=== PATIENT | male | born 1965 | race Caucasian/White ===

== ENCOUNTER 2018-01-04 05:50 | Day surgery (SDC) | END 2018-01-04 10:50 | disposition home or self-care (01) ==

== ENCOUNTER → 2018-04-29 | Outpatient (CLI) | END | disposition home or self-care (01) ==

== ENCOUNTER → 2018-06-29 | Outpatient (CLI) | END | disposition home or self-care (01) ==

== ENCOUNTER 2018-06-30 07:27 | Inpatient (IN) | END 2018-07-01 13:20 | disposition home health service (06) | DRG 470 ==

== ENCOUNTER → 2018-07-13 | Outpatient (CLI) | END | disposition home or self-care (01) ==

== ENCOUNTER → 2018-09-27 | Outpatient (CLI) | END | disposition home or self-care (01) ==

== ENCOUNTER → 2018-10-11 | Outpatient (CLI) | END | disposition home or self-care (01) ==

== ENCOUNTER 2018-12-01 05:50 | Inpatient (IN) | payer OTHER ==
[2018-12-01] VITALS (25 sets, daily range): BP systolic 95–131; BP diastolic 58–85; PULSE 64–99; RESP 10–27; Ht 180.3 cm; Wt 94.8 kg
[~2018-12-01] VITALS: Ht 180.3 cm; Wt 94.8 kg
[~2018-12-01 05:50] MED LIST: ALLO100T PO; AMLO2.5T78 PO; ATOR40TA68 PO
[2018-12-01] MEDS ORDERED: LACTATED RINGER'S 1,000 ML IV* SCH (06:00)
[2018-12-01] MEDS ORDERED: TRANEXAMIC ACID 1,000 MG in NS 100 ML PRE-OP X1 IVPB ONE (06:00)
[2018-12-01] MEDS ORDERED: CEFAZOLIN 2 GM/50 ML (PMX) 50 ML IVPB ONE (06:00)
[2018-12-01] MEDS ORDERED: PROPOFOL 200 MG INJ ONE (07:00)
[2018-12-01] MEDS ORDERED: METOCLOPRAMIDE 10 MG INJ ONE (07:00)
[2018-12-01] MEDS ORDERED: CEFAZOLIN 1 GM INJ ONE (07:00)
[2018-12-01] MEDS ORDERED: DEXAMETHASONE 4 MG/ML 5 ML INJ ONE (07:00)
[2018-12-01] MEDS ORDERED: ALLO100T PO (07:03)
[2018-12-01] MEDS ORDERED: CHOL100062 PO (07:03)
[2018-12-01] MEDS ORDERED: ZOLP10TA5 PO (07:03)
[2018-12-01] MEDS ORDERED: HYDR-3980 PO (07:04)
[2018-12-01] MEDS ORDERED: BACITRACIN 50000 UNITS INJ ONE (07:05)
[2018-12-01] MEDS ORDERED: POLYMYXIN B 500000 UNIT INJ ONE (07:07)
--- NOTE | 2018-12-01 07:20 | PREAC ---
Date/Time of Note Date/Time of Note DATE: 12/01/18 TIME: : Anesthesia Eval and Record Evaluation Time Pre-Procedure Interview DATE: 12/01/18 TIME: 07:19 Age 53 Sex male NPO: 8 hrs Preoperative diagnosis left hip arthritis Planned procedure L hip total arthroplasty Past Medical History Past Medical History: Includes Cardio: HTN Musculoskeletal: Osteoarthritis, Other (gout) Psych: Anxiety Surgery & Anesthesia Issues No known issue Meds Anticoagulation: No Beta Shahab within 24 hr: No Reason Beta Shahab not given: Pt. not on B-Shahab Reported Medications Hydrocodone/Acetaminophen ([place] 10-325 Tablet) 1 Each Tablet, 1 EACH PO Q6 PRN for PAIN, TAB 12/01/18 Cholecalciferol* (Vitamin D3*) 1,000 Unit Tablet, 1000 UNIT PO DAILY, TAB 12/01/18 Allopurinol* (Allopurinol*) 100 Mg Tablet, 100 MG PO DAILY, TAB 12/01/18 Zolpidem Tartrate* (Zolpidem Tartrate*) 10 Mg Tablet, 10 MG PO QHS PRN for INSOMNIA, #30 TAB 12/01/18 Amlodipine Besylate* (Amlodipine Besylate*) 2.5 Mg Tablet, 2.5 MG PO DAILY, #30 TAB 06/30/18 Atorvastatin* (Atorvastatin*) 40 Mg Tablet, 40 MG PO QHS, #30 TAB 06/30/18 Discontinued Reported Medications Allopurinol* (Allopurinol*) 100 Mg Tablet, 100 MG PO DAILY, TAB 06/30/18 Current Medications Lactated Ringer's 1,000 ml @ 125 mls/hr Q8H IV* Last administered on 12/01/18at 07:07; Admin Dose 125 MLS/HR; Start 12/01/18 at 06:00; Stop 12/01/18 at 13:59 Tranexamic Acid 1000 mg/Sodium Chloride 110 ml @ 220 mls/hr INTRA-OP ONCE IVPB ; Start 12/01/18 at 07:30; Stop 12/01/18 at 07:59 Ropivacaine/ Morphine Sulfate/ Clonidine/ Epinephrine/ Ketorolac Tromethamine/ Vancomycin HCl/ Sodium Chloride INTRA-OP INJ ; Start 12/01/18 at 07:30; Stop 12/01/18 at 10:30 Meds reviewed: Yes Allergies Coded Allergies: No Known Allergy (Unverified , 12/01/18) Allergies Reviewed: Yes Labs/Studies Labs Reviewed: Reviewed by anesthesiologist test: N/A Studies: ECG, CXR Pre-procedure Exam Last vitals Vital Signs Date Temp Pulse Resp B/P (MAP) Pulse Ox O2 O2 Flow FiO2 Time Delivery Rate 12/01/18 98.1 74 18 120/85 96 Room Air 06:59 (97) Airway: Adequate mouth opening, Adequate thyromental dist Mallampati: Mallampati III Teeth: Normal Lung: Normal Heart: Normal ASA Physical Status ASA physical status: 3 Emergency: None Planned Anesthetic General/MAC: LMA Planned Pain Management Sub-arachniod narcotics, Parenteral pain med, Other neuraxial med, Local by surgeon Pre-operative Attestations Prior to commencing anesthesia and surgery, the patient was re-evaluated, there was verification of: *The patient's identity *The results of appropriate recent lab work and preoperative vital signs *The above evaluation not changing prior to induction *Anesthetic plan, risk benefits, alternative and complications discussed with patient/family; questions answered; patient/family understands, accepts and wishes to proceed. KASSANDRA CASTILLO MD Dec 01, 2018 07:20
[2018-12-01] MEDS ORDERED: morphine SULFATE/PF (10 MG/10 ML) INJ ONE (07:23)
[2018-12-01] MEDS ORDERED: MIDAZOLAM 1 MG/ML 2 ML INJ ONE (07:23)
[2018-12-01] MEDS ORDERED: FENTAnyl 50 MCG/ML VIAL ONE (07:23)
[2018-12-01] MEDS ORDERED: PROPOFOL 20 ML ONE (07:24)
[2018-12-01] MEDS ORDERED: ONDANSETRON 4 MG INJ ONE (07:24)
[2018-12-01] MEDS ORDERED: LIDOCAINE 2% (SDV) 5 ML INJ ONE (07:24)
[2018-12-01] MEDS ORDERED: EPINEPHrine 1 MG INJ ONE (07:28)
[2018-12-01] MEDS ORDERED: TRANEXAMIC ACID 1,000 MG in NS 100 ML INTRA-OP X1 IVPB ONE (07:30)
[2018-12-01] MEDS ORDERED: LEVALBUTEROL (NEB) 1.25 MG/0.5 ML AMP HHN PRN (07:30)
[2018-12-01] MEDS ORDERED: LORAZEPAM 2 MG INJ IV PRN (07:30)
[2018-12-01] MEDS ORDERED: LABETALOL HCL 20MG INJ IV PRN (07:30)
[2018-12-01] MEDS ORDERED: hydrALAzine 20 MG INJ IV PRN (07:30)
[2018-12-01] MEDS ORDERED: DIPHENHYDRAMINE 50 MG INJ IV PRN (07:30)
[2018-12-01] MEDS ORDERED: HIP PAIN COCKTAIL VANCO INJ SCH ×7 (07:30)
[2018-12-01] MEDS ORDERED: HYDROmorphONE 1 MG/5 ML IV SYRINGE IV PRN ×2 (07:30)
[2018-12-01] MEDS ORDERED: MEPERIDINE 25 MG INJ IV PRN (07:30)
[2018-12-01] MEDS ORDERED: IPRATROPIUM (NEB) 0.5 MG/2.5 ML AMP HHN PRN (07:30)
[2018-12-01] MEDS ORDERED: ONDANSETRON 4 MG INJ IV PRN (07:30)
[2018-12-01] MEDS ORDERED: MIDAZOLAM 1 MG/ML 2 ML INJ IV PRN (07:30)
[2018-12-01] MEDS ORDERED: FENTAnyl 50 MCG/ML VIAL IV PRN ×2 (07:30)
--- NOTE | 2018-12-01 07:34 | HPN ---
Date/Time of Note Date/Time of Note DATE: 12/01/18 TIME: 07:34 Interval H&P Admission Note Pt. seen H&P reviewed: No system changes ROSHNI LANDIS MD Dec 01, 2018 07:34
[2018-12-01] MEDS ORDERED: KETOROLAC 15 MG INJ IV PRN (10:00)
[2018-12-01] MEDS ORDERED: BISACODYL 10 MG SUPP PR PRN (10:00)
[2018-12-01] MEDS ORDERED: NACL 0.9% 3 ML SYG IV SCH (10:00)
[2018-12-01] MEDS ORDERED: DOCUSATE SODIUM 100 MG CAP PO ONE (10:00)
[2018-12-01] MEDS ORDERED: MAGNESIUM HYDROXIDE 30ML CUP PO PRN (10:00)
[2018-12-01] MEDS ORDERED: NALOXONE (0.4 MG/ML) INJ IV PRN (10:00)
[2018-12-01] MEDS ORDERED: NA PHOSPHATE/BIPHOS 133 ML ENEMA PR PRN (10:00)
[2018-12-01] MEDS ORDERED: SENNA/DOCUSATE NA (8.6MG/50MG) TAB PO PRN (10:00)
--- NOTE | 2018-12-01 10:03 | SIPON ---
Date/Time of Note Date/Time of Note DATE: 12/01/18 TIME: 10:01 Operative Report Preoperative Diagnosis Left Hip Osteoarthritis Postoperative Diagnosis Same Operation/Procedure Performed Left Total Hip Arthroplasty Surgeon Ariel Aranda MD autopsy assistant Artie Watkins Anesthesia: spinal Estimated blood loss: other Transfusion Required none Specimen Bone Grafts/Implants none Complications none ARIEL ARANDA MD Dec 01, 2018 10:03
--- NOTE | 2018-12-01 10:07 | OPR ---
Date/Time of Note Date/Time of Note DATE: 12/01/18 TIME: 10:03 Operative Report Free Text/Dictation DATE OF OPERATION: December 01, 2018 PREOPERATIVE DIAGNOSIS: Left hip osteoarthritis. POSTOPERATIVE DIAGNOSIS: Left hip osteoarthritis. PROCEDURES PERFORMED: 1. Left total hip arthroplasty. CPT code 96653. 2. Computer assisted navigational procedure, CPT code 26029. 3. Interpretation of AP Pelvis x-ray. 4. Interpretation of left hip, 2 views. SURGEON: Roshni Landis. ELECTRIC CAR OPERATOR: 1. LUCA Tejada 2. Artie Watkins. ANESTHESIOLOGIST: Dr. Huynh ANESTHESIA: Spinal ESTIMATED BLOOD LOSS: 400 mL. COMPLICATIONS: None. SPECIMENS: Resected bone. DISPOSITION: PACU in stable condition. IMPLANT USED: A DePuy Corail size 13 standard stem, 36/+1.5 delta ceramic femoral head, 54 [place] Cup, 36 neutral liner COMPLICATIONS: None. DISPOSITION: To PACU in stable condition. INDICATION FOR PROCEDURE: This is an 53 year-old male with endstage osteoarthritis of the left hip who had failed nonoperative management. Risks, benefits, alternatives of surgical intervention were discussed with the patient and informed consent was obtained. The risks of surgery include but are not limited to infection, deep venous thrombosis, pulmonary embolism, leg length discrepancy, fracture, damage to neurovascular structures requiring repair, loosening of the prosthesis, wear of prosthesis, need for revision surgery, heart attack, stroke, need for blood transfusion, risks associated with anesthesia and even . DESCRIPTION OF PROCEDURE: The patient was met in the preoperative suite and the correct operative site was confirmed and marked. Patient was then brought into operating room. After induction of general anesthesia, the patient was placed in the supine position on the table. The left lower extremity was prepped and draped in the usual sterile fashion. Before starting, a timeout was taken to identify the correct operative site, the patients name and medical record number and to confirm the preoperative antibiotics consisting of 1 gram of IV Ancef, along with 1 gram of tranexamic acid were administered. At this point, an 8 cm incision was made approximately 2 cm lateral and 1 cm distal to the ASIS. The incision was carried down to the fascia. The fascia was then incised. Then, 2 Allis clamps were placed. The interval was then bluntly developed and the tensor fascia beverley was then retracted laterally. The lateral circumflex vessels were identified and coagulated. The anterior capsule was then visualized and a capsulotomy was performed. At this point, markings were made for the napkin ring osteotomy of the femoral neck. Using the saw the initial osteotomy was then made and completed with the use of an osteotome. A Hilda was then used to remove the napkin ring and a corkscrew was then placed in the femoral head and the head was then removed. The head was sized to 53 mm. Sequential reaming was begun with a 49 mm reamer to medialize, going up to a 53 mm reamer. A trial 54 mm cup was then impacted and the radlink was then used to determine the appropriate anteversion and abduction of the cup. The cup was noted to be in approximately 45 degrees of inclination, and 20 degrees of anteversion. The trial was then removed. The appropriate size cup was then placed and again the radlink was used to determine the inclination and anteversion, and was noted be unchanged. The 36 mm liner was then impacted into place and the final acetabular x-rays were taken which again demonstrated the cup to be in appropriate abduction and anteversion. At this point, the femoral lift was then used and the leg was then placed in external rotation, extension, and adduction. Retractors were placed and the femoral releases were performed using a box osteotome followed by a canal finder. Sequential broaching was begun with a 8 broach going up to a size 13 standard broach. The trial 13 mm standard offset stem along with a 36/+1.5 trial head and neck were placed. The hip was then reduced and taken through range of motion, noted to be stable in extension and external rotation of up to 110 degrees. AP x-rays of the pelvis and left hip, 2 view x-rays were taken. The x-rays demonstrated the prosthesis to be in the correct position with equal leg lengths. The trial components were then removed. The appropriate sized components were then placed. The hip was again reduced with unchanged stability and equal leg lengths and no fractures were seen. The hip was again taken through range of motion and noted to be stable to extension and external rotation. The wound was then thoroughly irrigated. The capsule and the fascia were closed using #1 Stratafix. The subcutaneous tissue was closed using 2-0 Vicryl and the skin with 4-0 Monocryl in subcuticular fashion and Steri-Strips were applied. There were no complications. Patient was awakened and taken to postoperative care unit in stable condition. Prior to transfer, the patient was noted to have equal leg lengths and a palpable dorsalis pedis pulse. POSTOPERATIVE CARE: Patient will be weightbearing as tolerated. Patient will work with physical therapy, and receive multimodal pain management.. Patient will receive two additional doses of IV Ancef along with aspirin 81 mg p.o. b.i.d. for 6 weeks. Patient will have SCDs while in the hospital. Upon discharge, patient will follow up in my office within 2 weeks postoperatively. ROSHNI LANDIS MD Dec 01, 2018 10:07
[2018-12-01] MEDS: HYDROmorphONE 1 MG/5 ML IV SYRINGE IV PRN ×2 (10:37→11:12)
[2018-12-01] MEDS: CEFAZOLIN 2 GM/50 ML (PMX) 50 ML IVPB SCH ×2 (10:37→17:43)
--- NOTE | 2018-12-01 13:31 | CONS ---
Assessment/Plan Assessment/Plan Hospital Course (Demo Recall) Assessment and plan: 53-year-old male status post left hip replacement secondary to osteo-arthritis, prior history right hip replacement, hypertension, gout #Left hip arthroplasty: Again secondary to hip arthritis, surgery performed earlier today. -Continue care as ordered by primary team including pain control medications, physical therapy, occupational therapy, labs #Hypertension: Stable - continue current medication #Gout: No apparent issues present -Continue current medications We will continue to follow along with you. Consultation Date/Type/Reason Admit Date/Time Dec 01, 2018 at 05:50 Date/Time of Note DATE: 12/01/18 TIME: 13:27 Hx of Present Illness 53-year-old male past medical history of bilateral hip arthritis, status post right hip replacement 2017, questionable high cholesterol, gout, hypertension, who was brought in today to have an elective procedure performed, specifically a left hip replacement. This is secondary to chronic left hip arthritis not improving with outpatient medical management. Patient underwent the procedure earlier today. Presently patient is out of recovery and on the medical surgical unit, denies chest pain, shortness of breath, nausea vomiting, fever chills, diarrhea constipation, headaches or dizziness. Patient is actually asking now when he can go home. Past Medical History Home Meds Reported Medications Hydrocodone/Acetaminophen ([place] 10-325 Tablet) 1 Each Tablet, 1 EACH PO Q6 PRN for PAIN, TAB 12/01/18 Cholecalciferol* (Vitamin D3*) 1,000 Unit Tablet, 1000 UNIT PO DAILY, TAB 12/01/18 Allopurinol* (Allopurinol*) 100 Mg Tablet, 100 MG PO DAILY, TAB 12/01/18 Zolpidem Tartrate* (Zolpidem Tartrate*) 10 Mg Tablet, 10 MG PO QHS PRN for INSOMNIA, #30 TAB 12/01/18 Amlodipine Besylate* (Amlodipine Besylate*) 2.5 Mg Tablet, 2.5 MG PO DAILY, #30 TAB 06/30/18 Atorvastatin* (Atorvastatin*) 40 Mg Tablet, 40 MG PO QHS, #30 TAB 06/30/18 Discontinued Reported Medications Allopurinol* (Allopurinol*) 100 Mg Tablet, 100 MG PO DAILY, TAB 06/30/18 Medications Current Medications Lactated Ringer's 1,000 ml @ 125 mls/hr Q8H IV* Last administered on 12/01/18at 07:07; Admin Dose 125 MLS/HR; Start 12/01/18 at 06:00; Stop 12/01/18 at 13:59 Hydromorphone HCl (Dilaudid) 0.2 mg PACU PRN IV MILD PAIN 1-3 Last administered on 12/01/18at 11:27; Admin Dose 0.2 MG; Start 12/01/18 at 07:30; Stop 12/01/18 at 15:00 Hydromorphone HCl (Dilaudid) 0.4 mg PACU PRN IV MOD PAIN 4-6 Last administered on 12/01/18at 11:12; Admin Dose 0.4 MG; Start 12/01/18 at 07:30; Stop 12/01/18 at 15:00 Hydromorphone HCl (Dilaudid) 0.6 mg PACU PRN IV SEVERE PAIN 7-10; Start 12/01/18 at 07:30; Stop 12/01/18 at 15:00 Fentanyl (Sublimaze) 25 mcg PACU ORDER PRN IV MILD PAIN 1-3; Start 12/01/18 at 07:30; Stop 12/01/18 at 15:00 Fentanyl (Sublimaze) 50 mcg PACU ORDER PRN IV MOD PAIN 4-6; Start 12/01/18 at 07:30; Stop 12/01/18 at 15:00 Ondansetron HCl (Zofran Inj) 4 mg PACU ORDER PRN IV NAUSEA/VOMITING; Start 12/01/18 at 07:30; Stop 12/01/18 at 15:00 Labetalol HCl (Labetalol) 5 mg PACU ORDER PRN IV HIGH BLOOD PRESSURE; Start 12/01/18 at 07:30; Stop 12/01/18 at 15:00 Hydralazine HCl (Apresoline) 5 mg PACU ORDER PRN IV HIGH BLOOD PRESSURE; Start 12/01/18 at 07:30; Stop 12/01/18 at 15:00 Levalbuterol (Xopenex Neb) 1.25 mg PACU ORDER PRN HHN .WHEEZING; Start 12/01/18 at 07:30; Stop 12/01/18 at 15:00 Ipratropium [place] (Atrovent 0.02% (Neb)) 0.5 mg PACU ORDER PRN HHN .WHEEZING; Start 12/01/18 at 07:30; Stop 12/01/18 at 15:00 Meperidine HCl (Demerol) 25 mg PACU ORDER PRN IV .RIGORS; Start 12/01/18 at 07:30; Stop 12/01/18 at 15:00 Diphenhydramine HCl (Benadryl) 25 mg PACU ORDER PRN IV .PRURITUS; Start 12/01/18 at 07:30; Stop 12/01/18 at 15:00 Lorazepam (Ativan) 1 mg PACU ORDER PRN IV .ANXIETY; Start 12/01/18 at 07:30; Stop 12/01/18 at 15:00 Midazolam HCl (Versed) 0.5 mg PACU ORDER PRN IV .ANXIETY; Start 12/01/18 at 07:30; Stop 12/01/18 at 15:00 Cefazolin Sodium/ Dextrose 50 ml @ 100 mls/hr Q8H IVPB Last administered on 12/01/18at 10:37; Admin Dose 100 MLS/HR; Start 12/01/18 at 10:00; Stop 12/02/18 at 02:29 Celecoxib (Celebrex) 100 mg BID PO ; Start 12/02/18 at 09:00 Pantoprazole (Protonix Tab) 40 mg DAILY@06 PO ; Start 12/02/18 at 06:00 Docusate Sodium (Colace) 200 mg BID PO ; Start 12/02/18 at 09:00; Stop 12/04/18 at 21:01 Simethicone (Mylicon) 80 mg TID PRN PO .GAS; Start 12/01/18 at 10:00 Senna/Docusate Sodium (Senokot-S) 2 tab BID PRN PO .CONSTIPATION; Start 12/01/18 at 10:00 Magnesium Hydroxide (Milk Of Mag) 30 ml HS PRN PO .CONSTIPATION; Start 12/01/18 at 10:00 Bisacodyl (Dulcolax Supp) 10 mg DAILY PRN AR .CONSTIPATION; Start 12/01/18 at 10:00 Sodium Biphosphate/ Sodium Phosphate (Fleet Enema) 133 ml DAILY PRN AR .CONSTIPATION; Start 12/01/18 at 10:00 Ketorolac Tromethamine (Toradol) 15 mg Q6H PRN IV .PAIN; Start 12/01/18 at 10:00 Naloxone HCl (Narcan) 0.2 mg Q2M PRN IV .RESP RATE; Start 12/01/18 at 10:00 IV Flush (NS 3 ml) 3 ml per protocol IV ; Start 12/01/18 at 10:00 Aspirin (Halfprin) 81 mg BID PO ; Start 12/02/18 at 09:00 Allergies: Coded Allergies: No Known Allergy (Unverified , 12/01/18) Past Surgical History Past Surgical Hx: other (Right hip replacement 2018) Family History Significant Family History: no pertinent family hx Social History Smoking Status: Never smoker Drug Use: none Exam/Review of Systems Exam Vitals Vital Signs Date Temp Pulse Resp B/P (MAP) Pulse Ox O2 O2 Flow FiO2 Time Delivery Rate 12/01/18 68 15 110/68 97 Room Air 11:40 (82) 12/01/18 98.4 10:19 Intake and Output 11/30/18 11/30/18 12/01/18 1515:00 23:00 07:00 IntakeIntake Total 0 ml BalanceBalance 0 ml Exam Constitutional: alert, oriented HEENT: PERRLA, EOMI Neck: Supple Respiratory: clear to auscultation Cardiovascular: regular rate and rhythm Gastrointestinal: soft; nontender, non-distended Musculoskeletal: decreased range of motion left lower extremity Medications Medication Current Medications Lactated Ringer's 1,000 ml @ 125 mls/hr Q8H IV* Last administered on 12/01/18at 07:07; Admin Dose 125 MLS/HR; Start 12/01/18 at 06:00; Stop 12/01/18 at 13:59 Hydromorphone HCl (Dilaudid) 0.2 mg PACU PRN IV MILD PAIN 1-3 Last administered on 12/01/18at 11:27; Admin Dose 0.2 MG; Start 12/01/18 at 07:30; Stop 12/01/18 at 15:00 Hydromorphone HCl (Dilaudid) 0.4 mg PACU PRN IV MOD PAIN 4-6 Last administered on 12/01/18at 11:12; Admin Dose 0.4 MG; Start 12/01/18 at 07:30; Stop 12/01/18 at 15:00 Hydromorphone HCl (Dilaudid) 0.6 mg PACU PRN IV SEVERE PAIN 7-10; Start 12/01/18 at 07:30; Stop 12/01/18 at 15:00 Fentanyl (Sublimaze) 25 mcg PACU ORDER PRN IV MILD PAIN 1-3; Start 12/01/18 at 07:30; Stop 12/01/18 at 15:00 Fentanyl (Sublimaze) 50 mcg PACU ORDER PRN IV MOD PAIN 4-6; Start 12/01/18 at 07:30; Stop 12/01/18 at 15:00 Ondansetron HCl (Zofran Inj) 4 mg PACU ORDER PRN IV NAUSEA/VOMITING; Start 12/01/18 at 07:30; Stop 12/01/18 at 15:00 Labetalol HCl (Labetalol) 5 mg PACU ORDER PRN IV HIGH BLOOD PRESSURE; Start 12/01/18 at 07:30; Stop 12/01/18 at 15:00 Hydralazine HCl (Apresoline) 5 mg PACU ORDER PRN IV HIGH BLOOD PRESSURE; Start 12/01/18 at 07:30; Stop 12/01/18 at 15:00 Levalbuterol (Xopenex Neb) 1.25 mg PACU ORDER PRN HHN .WHEEZING; Start 12/01/18 at 07:30; Stop 12/01/18 at 15:00 Ipratropium [place] (Atrovent 0.02% (Neb)) 0.5 mg PACU ORDER PRN HHN .WHEEZING; Start 12/01/18 at 07:30; Stop 12/01/18 at 15:00 Meperidine HCl (Demerol) 25 mg PACU ORDER PRN IV .RIGORS; Start 12/01/18 at 07:30; Stop 12/01/18 at 15:00 Diphenhydramine HCl (Benadryl) 25 mg PACU ORDER PRN IV .PRURITUS; Start 12/01/18 at 07:30; Stop 12/01/18 at 15:00 Lorazepam (Ativan) 1 mg PACU ORDER PRN IV .ANXIETY; Start 12/01/18 at 07:30; Stop 12/01/18 at 15:00 Midazolam HCl (Versed) 0.5 mg PACU ORDER PRN IV .ANXIETY; Start 12/01/18 at 07:30; Stop 12/01/18 at 15:00 Cefazolin Sodium/ Dextrose 50 ml @ 100 mls/hr Q8H IVPB Last administered on 12/01/18at 10:37; Admin Dose 100 MLS/HR; Start 12/01/18 at 10:00; Stop 12/02/18 at 02:29 Celecoxib (Celebrex) 100 mg BID PO ; Start 12/02/18 at 09:00 Pantoprazole (Protonix Tab) 40 mg DAILY@06 PO ; Start 12/02/18 at 06:00 Docusate Sodium (Colace) 200 mg BID PO ; Start 12/02/18 at 09:00; Stop 12/04/18 a t 21:01 Simethicone (Mylicon) 80 mg TID PRN PO .GAS; Start 12/01/18 at 10:00 Senna/Docusate Sodium (Senokot-S) 2 tab BID PRN PO .CONSTIPATION; Start 12/01/18 at 10:00 Magnesium Hydroxide (Milk Of Mag) 30 ml HS PRN PO .CONSTIPATION; Start 12/01/18 at 10:00 Bisacodyl (Dulcolax Supp) 10 mg DAILY PRN AR .CONSTIPATION; Start 12/01/18 at 10:00 Sodium Biphosphate/ Sodium Phosphate (Fleet Enema) 133 ml DAILY PRN AR .CONSTIPATION; Start 12/01/18 at 10:00 Ketorolac Tromethamine (Toradol) 15 mg Q6H PRN IV .PAIN; Start 12/01/18 at 10:00 Naloxone HCl (Narcan) 0.2 mg Q2M PRN IV .RESP RATE; Start 12/01/18 at 10:00 IV Flush (NS 3 ml) 3 ml per protocol IV ; Start 12/01/18 at 10:00 Aspirin (Halfprin) 81 mg BID PO ; Start 12/02/18 at 09:00 OMEGA LOWRY Dec 01, 2018 13:31
--- NOTE | 2018-12-01 14:00 | NUR ---
OT EVAL: Pt is [id number] male past medical history of bilateral hip arthritis, status post right hip replacement 2018, questionable high cholesterol, gout, hypertension, who was brought in today to have an elective procedure performed, specifically a left hip replacement. Precautions: Anterior Left Hip Arthroplasty precautions PLOF: Pt lives with his mother in a single story house. Pt was independent with all ADL's prior to surgery. Pt owns AE for LB dressing, FWW, has a raised toilet seat and shower bench. CLOF: RN cleared pt for skilled OT tx. Pt received supine in bed and agreeable to tx with stable vitals. Pt is AOX4, stated 6/10 pain (declined pain med) and demonstrated BUE AROM WFL. OTR reviewed precautions (no hyperextension and exertional rotation of left hip). Pt performed bed mob, STS and functional mob with supervision using FWW with good safety awareness. OTR reviewed sequencing for LB dressing and use of AE. Pt demonstrated toilet transfer and h/g with supervision. Pt left supine in bed with all needs met. RN notified. Pt is Mod I/Supervision with ADL's with good safety awareness- no further skilled OT warranted. D/C OT.
[2018-12-01] MEDS ORDERED: traMADol 50 MG TAB PO PRN (14:30)
[2018-12-01] MEDS ORDERED: HYDROCODONE/APAP (5/325) TAB PO PRN ×2 (14:30)
--- NOTE | 2018-12-01 15:24 | NUR ---
PT EVALUATION NOTE: Patient is a 53 year old male who was brought in today to have a left hip replacement. PMH: bilateral hip arthritis, status post right hip replacement 2018, questionable high cholesterol, gout, hypertension PRECAUTIONS: anterior hip precautions, WBAT LLE PLOF: Patient lives with his mother in a single story house with no steps to enter. Prior to hospitalization patient was independent with all functional mobility without an assistive device. Patient has a FWW and raised toilet seat at home. CLOF: Raz BOLAND cleared patient for PT evaluation. Patient agreeable to participate with PT evaluation, c/o pain L hip rated at 6/10. Received patient in semi-supine position in bed, BP 147/76, HR 99. Patient educated in safety awareness, fall prevention, purpose of PT evaluation and anterior hip precautions. Patient able to come to sitting position at the EOB with supervision with good observance of THR precautions. Sit to stand with FWW and verbal cues for proper hand placement. Gait training with FWW x 200 feet, verbal cues to keep feet slightly apart as patient tends to walk with one foot placed in front of the other. Patient demonstrates appropriate bilateral step length with reciprocal gait pattern. Patient returned to bed with supervision and good observance of THR precautions. Patient positioned for comfort, all needs met, call light within reach. Kylee Cristina RN notified of patient's status at the end of the session. Patient is cleared to transfer and ambulate with nursing supervision. PT RECOMMENDATIONS: Patient will benefit from skilled inpatient PT intervention to address strength, balance, safety and functional mobility. Anticipate discharge home with home health PT once cleared by MD. Patient has necessary DME at home.
--- NOTE | 2018-12-01 15:44 | NUR ---
JHON NOTES: MET WITH THE PT AT THE BEDSIDE. PT IS A 53 YRS OLD MALE WITH ADMITTING DX OF LEFT HOP OSTEOARTHRITIS. PRIOR TO THE ADMISSION, PT LIVED WITH HIS MOTHER IN [place]. PT ALREADY HAS HIS OWN FWW AND AT THE BESIDE. PT REFUSED SHOWER CHAIR AND BSC. PT ALSO REFUSED HHNURSING AND HHPT. HE INDICATED THAT HE WILL GO TO HIS REGULAR PCP FOR BLOOD DRAW. HE KNOWS THAT HE HAS TO SEE HIS PCP ON THU AND THURSDAY. PT IS AXOX4 AND HE UNDERSTOOD. THIS CM ASKED HIM THREE TIMES ABOUT THE HH AND AGAIN HE IS REFUSING HH THREE TIMES. INFORMED BEDSIDE NURSE ALREADY. PLAN: PT CAN BE DC HOME ONCE MD CLEARS THE PT. RANDEE CONDE CM [id number] Addendum: 12/01/18 at 1547 by RANDEE JUNG CM Amended: Links added.
--- NOTE | 2018-12-01 16:46 | PAC ---
Date/Time of Note Date/Time of Note DATE: 12/01/18 TIME: 16:46 Post-Anesthesia Notes Post-Anesthesia Note Last documented vital signs Vital Signs Date Temp Pulse Resp B/P (MAP) Pulse Ox O2 O2 Flow FiO2 Time Delivery Rate 12/01/18 99 2.0 16:09 12/01/18 98.3 99 20 131/71 Room Air 14:50 (91) Activity: WNL Respiratory function: WNL Cardiovascular function: WNL Mental status: Baseline Pain reasonably controlled: Yes Hydration appropriate: Yes Nausea/Vomiting absent: Yes KASSANDRA CASTILLO MD Dec 01, 2018 16:46
--- NOTE | 2018-12-01 18:51 | NUR ---
RN NOTE: PATIENT POST OP TODAY, S/P LEFT TOTAL HIP REPLACEMENT, SEEN BY PT, PATIENT INSISTED TO GO HOME TODAY, CALL PLACED TO DR. LANDIS AND ORDER TO DISCHARGE PATIENT HOME GIVEN, ALL INSTRUCTIONS, PHS, TEACHING AND PRESCRIPTIONS FOR HOME GIVEN, PATIENT DISCHARGED VIA WHEELCHAIR BY MARILEE METZGER.
[2018-12-01] MEDS ORDERED: GABAPENTIN 300 MG CAP PO SCH (21:00)
[2018-12-02] MEDS ORDERED: PANTOPRAZOLE (EC) 40 MG TAB PO SCH (06:00)
[2018-12-02] MEDS ORDERED: ASPIRIN (EC) 81 MG TAB PO SCH (09:00)
[2018-12-02] MEDS ORDERED: DOCUSATE SODIUM 100 MG CAP PO SCH (09:00)
[2018-12-02] MEDS ORDERED: CELECOXIB 100 MG CAP PO SCH (09:00)
== END 2018-12-01 18:48 | disposition home health service (06) | DRG 470 ==
LOC: REC 05:50 → MS1 11:40
PROVIDERS: ADMIT Orthopaedic Surgery Adult Reconstructive Orthopaedic Surgery; ATTEND Orthopaedic Surgery Adult Reconstructive Orthopaedic Surgery
PROC: 8E0YXBZ Computer Assisted Procedure of Lower Extremity (ICD-10-PCS; 2018-12-01)
PROC: 0SRB04A Replacement of Left Hip Joint with Ceramic on Polyethylene Synthetic Substitute, Uncemented, Open Approach (ICD-10-PCS; principal; 2018-12-01 07:30)
DX: M16.12 Unilateral primary osteoarthritis, left hip (principal); M10.9 Gout, unspecified; F41.9 Anxiety disorder, unspecified; I10 Essential (primary) hypertension
CPT/HCPCS: 72170; 73530; 87086; 88304; 88311; 97162; 97167; C1776; J0171; J0690; J0735; J1100; J1170; J1885; J2250; J2274; J2405; J2765; J2795; J3010; J3370

== ENCOUNTER → 2018-12-14 | Outpatient (CLI) | payer OTHER ==
[~2018-12-14] MED LIST changes: +CHOL100062 PO; +HYDR-3980 PO; +ZOLP10TA5 PO
--- NOTE | 2018-12-14 15:35 | HKNOTE ---
DATE OF SERVICE: 12/14/2018 HISTORY OF PRESENT ILLNESS: Mr. Hines is 2 weeks status post left total hip arthroplasty. He has be en doing well. He is taking his aspirin twice daily. He is using a cane for ambulation. He denies any fevers, chills or chest pain. Date of surgery is 12/01/2018. PHYSICAL EXAMINATION: Left hip: Healed incision. No drainage, no erythema, warmth or fluctuance. A 120 degrees of flexion, 35 degrees of extension, 20 degrees of internal rotation. A 5/5 function o f quadriceps, tibialis anterior, gastroc soleus. Palpable pulses. DIAGNOSTIC DATA: X-rays of left hip 2 views and AP pelvis x-rays demonstrate bilateral total hip pro sthesis to be in acceptable alignment. No fractures, dislocations. Leg lengths are equal. IMPRESSION: A 53-year-old male status post left total hip arthroplasty in 12/01/2018. PLAN: He will finish 4 additional weeks of aspirin for DVT prophylaxis. He was offered outpatient p hysical therapy, but declined. He will continue to perform home exercises. He will follow up in [facility] for reevaluation. Dictated By: ROSHNI DOMINGUEZ/HILDA Conf#: [id number] DID#: [id number]
--- NOTE | 2018-12-15 07:39 | RADRPT ---
PROCEDURE: Pelvic and left hip study CLINICAL INDICATION: Pain TECHNIQUE: AP pelvis and AP lateral views of the left hip were performed. COMPARISON: Left hip study 10/11/2080 FINDINGS: Bilateral total hip prosthesis in place without dislocation or loosening. No acute fracture. No focal bony blastic or lytic lesions. Soft tissues are unremarkable per IMPRESSION: Unremarkable bilateral hip prosthesis. RPTAT:AAJJ Physician López Date Time Electronically viewed and signed by Jacqueline Diallo Physician on 12/15/2018 07:39 /
== END | disposition home or self-care (01) ==
LOC: HKI 13:41
PROVIDERS: ATTEND Orthopaedic Surgery Adult Reconstructive Orthopaedic Surgery
DX: Z09 Encounter for follow-up examination after completed treatment for conditions other than malignant neoplasm (principal); Z96.642 Presence of left artificial hip joint
CPT/HCPCS: 73502; Z7500; G0463

== ENCOUNTER → 2019-01-18 | Outpatient (CLI) | payer OTHER ==
--- NOTE | 2019-01-18 16:18 | HKNOTE ---
DATE OF SERVICE: 01/18/2019 HISTORY OF PRESENT ILLNESS: Mr. Hines is almost 2 months status post left anterior total hip arthrop lasty and 5 months status post right total hip arthroplasty. He has been doing well. He does not re quire pain medications or assistive devices. He has finished his postoperative doses of aspirin. Da nikita of surgery, right anterior total hip arthroplasty 06/30/2018, left anterior total hip arthroplast y 12/01/2018. GAIT: Nonantalgic gait, reciprocal gait pattern. No use of assist devices. LEFT HIP EXAMINATION: Healed incision 120 degrees of hip flexion, 30 degrees of internal rotation, 4 0 degrees external rotation, 30 degrees of extension. Leg lengths are equal. RIGHT HIP EXAMINATION: Healed incision 120 degrees of hip flexion, 30 degrees of internal rotation, 40 degrees external rotation, 30 degrees of extension. Leg lengths are equal. X-RAYS: AP pelvis, right hip, 2 views. Implant is in acceptable alignment. No fractures, dislocati ons or loosening are seen. Left hip 2-view x-rays. Implant is in acceptable alignment. No fractures, dislocations or loosening are seen. DIAGNOSIS: A 53-year-old male status post bilateral anterior total hip arthroplasties. PLAN: Mr. Hines is doing well postoperatively. He does not require pain medications or assistive de vices. Antibiotic use prior to dental procedure were discussed with the patient. He will follow up in November 2019 for his 1 year followup. Dictated By: ROSHNI DOMINGUEZ/HILDA Conf#: [id number] DID#: [id number]
--- NOTE | 2019-01-19 08:55 | RADRPT ---
PROCEDURE: XR Pelvis and Bilateral Hips CLINICAL INDICATION: Hip pain. TECHNIQUE: Three views of the pelvis and bilateral hips were obtained. COMPARISON: 12/14/2018 FINDINGS: There is no acute fracture or dislocation. There are postsurgical changes of bilateral total hip arth roplasties. The hardware is well aligned and intact bilaterally. There is no periprosthetic fracture or new periprosthetic lucency. The bone mineralization is mildly decreased. Moderate degenerative fanny nges are seen at the sacroiliac joints. IMPRESSION: 1. Stable postsurgical changes of bilateral total hip arthroplasty. RPTAT: AAEE Physician Melchor Date Time Electronically viewed and signed by Physician Melchor on 01/19/2019 08:55 RF/
== END | disposition home or self-care (01) ==
LOC: HKI 14:15
PROVIDERS: ATTEND Orthopaedic Surgery Adult Reconstructive Orthopaedic Surgery
DX: Z09 Encounter for follow-up examination after completed treatment for conditions other than malignant neoplasm (principal); Z96.642 Presence of left artificial hip joint
CPT/HCPCS: 73523

== ENCOUNTER 2019-04-14 10:09 | Day surgery (SDC) | payer OTHER ==
[2019-04-14] VITALS (10 sets, daily range): BP systolic 110–138; BP diastolic 62–98; PULSE 66–95; RESP 13–24; Ht 180.3 cm; Wt 97.1 kg
[~2019-04-14] VITALS: Ht 180.3 cm; Wt 97.1 kg
[2019-04-14] MEDS ORDERED: MINO100C PO (10:49)
[2019-04-14] MEDS ORDERED: SOD CHLORIDE 0.9% 1,000 ML IV SCH (11:30)
[2019-04-14] MEDS ORDERED: PROPOFOL 20 ML ONE (13:05)
[2019-04-14] MEDS ORDERED: KETOROLAC 30 MG INJ ONE (13:05)
[2019-04-14] MEDS ORDERED: CEFAZOLIN 1 GM INJ ONE (13:05)
[2019-04-14] MEDS ORDERED: MIDAZOLAM 1 MG/ML 2 ML INJ ONE (13:05)
[2019-04-14] MEDS ORDERED: ONDANSETRON 4 MG INJ ONE (13:05)
[2019-04-14] MEDS ORDERED: LIDOCAINE 2% (MDV) 20 ML INJ ONE (14:04)
[2019-04-14] MEDS ORDERED: BUPIVACAINE 0.5% (SDV) 30 ML INJ ONE (14:04)
--- NOTE | 2019-04-14 14:10 | PREAC ---
Date/Time of Note Date/Time of Note DATE: 04/14/19 TIME: 14:08 Anesthesia Eval and Record Evaluation Time Pre-Procedure Interview DATE: 04/14/19 TIME: 14:08 Age 53 Sex male NPO: 8 hrs Preoperative diagnosis R. Back Mass Planned procedure Excision of Mass Past Medical History Past Medical History: Includes Cardio: HTN, Dyslipidemia Surgery & Anesthesia Issues No known issue Meds Anticoagulation: No Beta Shahab within 24 hr: No Reason Beta Shahab not given: Pt. not on B-Shahab Reported Medications Minocycline Hcl* (Minocycline Hcl*) 100 Mg Capsule, 100 MG PO BID, CAP ON GOING 04/14/19 Allopurinol* (Allopurinol*) 100 Mg Tablet, 100 MG PO DAILY, TAB 12/01/18 Zolpidem Tartrate* (Zolpidem Tartrate*) 10 Mg Tablet, 10 MG PO QHS PRN for INSOMNIA, #30 TAB 12/01/18 Amlodipine Besylate* (Amlodipine Besylate*) 2.5 Mg Tablet, 2.5 MG PO DAILY, #30 TAB 06/30/18 Atorvastatin* (Atorvastatin*) 40 Mg Tablet, 40 MG PO QHS, #30 TAB 06/30/18 Discontinued Reported Medications Hydrocodone/Acetaminophen ([place] 10-325 Tablet) 1 Each Tablet, 1 EACH PO Q6 PRN for PAIN, TAB 12/01/18 Cholecalciferol* (Vitamin D3*) 1,000 Unit Tablet, 1000 UNIT PO DAILY, TAB 12/01/18 Current Medications Sodium Chloride 1,000 ml @ 75 mls/hr [id number] IV Last administered on 04/14/19at 11:14; Admin Dose 75 MLS/HR; Start 04/14/19 at 11:30; Stop 04/14/19 at 23:59 Meds reviewed: Yes Allergies Coded Allergies: No Known Allergy (Unverified , 04/14/19) Allergies Reviewed: Yes Labs/Studies Labs Reviewed: Reviewed by anesthesiologist Result Diagram: 04/14/19 1050 04/14/19 1050 Laboratory Tests 04/14/19 10:50 test: N/A Pre-procedure Exam Last vitals Vital Signs Date Temp Pulse Resp B/P (MAP) Pulse Ox O2 O2 Flow FiO2 Time Delivery Rate 04/14/19 98.1 95 16 138/76 97 Room Air 10:55 (96) Airway: Adequate mouth opening Mallampati: Mallampati II Teeth: Normal Lung: Normal Heart: Normal ASA Physical Status ASA physical status: 2 Emergency: None Planned Anesthetic General/MAC: MAC Pre-operative Attestations Prior to commencing anesthesia and surgery, the patient was re-evaluated, there was verification of: *The patient's identity *The results of appropriate recent lab work and preoperative vital signs *The above evaluation not changing prior to induction *Anesthetic plan, risk benefits, alternative and complications discussed with patient/family; questions answered; patient/family understands, accepts and wishes to proceed. STEPHANIA LOAIZA MD Apr 14, 2019 14:10
--- NOTE | 2019-04-14 14:43 | OPR ---
Date/Time of Note Date/Time of Note DATE: 04/14/19 TIME: 14:41 Operative Report Procedure Date: Apr 14, 2019 Preoperative Diagnosis back mass Postoperative Diagnosis same Operation/Procedure Performed 1. excision of back mass 5 cm mass 5 cm incision 2. localized adjacent tissue transfer with the use skin flaps 10 sq cm defect of back 3. therapeutic injection of subcutaneous local anesthesia Surgeon see signature line Chairman Ceo none Anesthesia Type: general Estimated Blood Loss: 0 - 10 ml's Transfusion none Specimen back mass Grafts/Implants none Complications none Pt Condition Post Procedure: stable Indications This is a 53-year-old male with a painful back mass here for surgical excision. Risks alternatives benefits and personal were discussed the patient. Patient expressed understanding and consents to the operation. Procedure Description Patient is taken to the OR and prepped and draped in usual sterile fashion. Surgical time was performed. IV antibiotics were given. Therapeutic contains local anesthesia was injected all around the surgical site. Transverse incision was made to 15 blade. Dissection with cautery skin onto the mass and the mass was circumferentially excised. Good hemostasis status. Due to tissue defect localized adjacent to his transfer with use of skin flaps were performed the flaps were raised and reapproximated and closed with skin charley. Dry dressings were applied. Atif TYSON Apr 14, 2019 14:43
--- NOTE | 2019-04-14 14:48 | PAC ---
Date/Time of Note Date/Time of Note DATE: 04/14/19 TIME: 14:48 Post-Anesthesia Notes Post-Anesthesia Note Last documented vital signs Vital Signs Date Temp Pulse Resp B/P (MAP) Pulse Ox O2 O2 Flow FiO2 Time Delivery Rate 04/14/19 98.1 95 16 138/76 97 Room Air 10:55 (96) Activity: WNL Respiratory function: WNL Cardiovascular function: WNL Mental status: Baseline Pain reasonably controlled: Yes Hydration appropriate: Yes Nausea/Vomiting absent: Yes STEPHANIA LOAIZA MD Apr 14, 2019 14:48
--- NOTE | 2019-04-14 14:56 | RADRPT ---
Vent Rate: 80 bpm RR Interval: 748 msec LA Interval: 159 msec QRS Duration: 105 msec QT Interval: 376 msec QTC Interval: 435 msec P-R-T Nye: 56 - 47 - 33 degrees Sinus rhythm...normal P axis, V-rate 50- 99 Electronically Signed By: Oswaldo Mcadams
[2019-04-14] MEDS ORDERED: FENTAnyl 50 MCG/ML VIAL IV PRN (15:00)
[2019-04-14] MEDS ORDERED: HYDROCODONE/APAP (5/325) TAB PO ONE (15:00)
[2019-04-14] MEDS ORDERED: HYDROmorphONE 1 MG/5 ML IV SYRINGE IV PRN (15:00)
[2019-04-14] MEDS ORDERED: OXYCODONE/ACETAMINOPHEN (5/325) TAB PO PRN (15:00)
[2019-04-14] MEDS ORDERED: ONDANSETRON 4 MG INJ IV PRN (15:00)
== END 2019-04-14 15:49 | disposition home or self-care (01) ==
LOC: SDS 10:09
PROVIDERS: ATTEND Surgery
DX: L72.0 Epidermal cyst (principal); I10 Essential (primary) hypertension; E78.5 Hyperlipidemia, unspecified
CPT/HCPCS: 14000; 71045; 80053; 85025; 85610; 85730; 88307; 93005; J0690; J1885; J2250; J2405; J3010; Z7512; Z7610